=== PATIENT | female | born 2000 | race Caucasian/White ===

== ENCOUNTER 2021-05-26 23:23 | Emergency (ER) | payer OTHER, SELFPAY ==
[2021-05-26 23:29] VITALS: BP 116/77; PULSE 87; RESP 18; TEMP 37.1; O2SAT 97; BMI 28.7
[2021-05-26 23:51] LABS: RBC Urine None Seen (0-5/HPF); WBC Urine None Seen (0-5/HPF)
[2021-05-27] LABS: Appearance Urine UA CLEAR; Bilirubin Urine UA NEGATIVE (NEGATIVE); Color Urine UA YELLOW; Glucose Urine UA NEGATIVE (Negative); Ketones Urine UA NEGATIVE (NEGATIVE); Leukocyte Esterase Urine UA NEGATIVE (NEGATIVE); Nitrite Urine UA NEGATIVE (Negative); Occult Blood Urine UA NEGATIVE (Negative); Protein Urine UA NEGATIVE (Negative); Urobilinogen Urine UA 0.2 E.U./dL (0.2)
[2021-05-27 00:04] LABS: Squamous Epithelial Cell Urine 10-30 /HPF (0-5/HPF)
[2021-05-27 00:05] LABS: Bacteria Urine Many (>30); Culture Indicated Urine Cult Not Indicated
--- NOTE | 2021-05-27 00:23 | DI.RAD.S_ITS ---
PROCEDURE: XR ABDOMEN 1V INDICATIONS: abdominal pain TECHNIQUE: One view of the abdomen acquired. COMPARISON: None. FINDINGS: Surgical changes and devices: An IUD is seen at its expected location. Bowel: Bowel gas pattern is normal. A moderate amount of stool can be seen within the colon. Soft tissues: No suspicious abdominal calcifications. Visualized solid organ contours appear normal in size. Bones: No suspicious bony lesions. Minimal levoconvex scoliotic curvature is seen. IMPRESSION: There is a moderate amount of stool seen within the colon. Please correlate with an underlying history of constipation. IUD incidentally noted. Note: No significant discrepancy from the preliminary report. Dictated by: Bony Levy M.D. on 05/27/2021 at 6:28 Approved by: Bony Levy M.D. on 05/27/2021 at 6:29
--- NOTE | 2021-05-27 00:24 | ED.GENADULT ---
HPI - General Adult General Chief complaint: Urogenital-Female Stated complaint: Possible UTI, back and abd pain Time Seen by Provider: 05/27/21 00:05 Source: patient Mode of arrival: Ambulatory Limitations: no limitations History of Present Illness HPI narrative: Patient is a 20-year-old female approximately 1 week ago she was seen in outside facility with abdominal discomfort and urinary symptoms. She was started on antibiotics. She has been taking them as directed. She states that the urinary symptoms have improved but her bowel symptoms have not. She thought that she was constipated. She took a dose of MiraLax and this did not improve any of the symptoms so she then disimpacted herself and has had a couple bowel movements since then. No vomiting. No fevers. Describes pain all over abdomen. Related Data Allergies Allergy/AdvReac Type Severity Reaction Status Date / Time No Known Drug Allergies Allergy Verified 05/26/21 23:34 Review of Systems Constitutional Constitutional: Denies fever(s) Cardiovascular Cardiovascular: Reports system reviewed and no additional complaints, except as documented Respiratory Respiratory: Reports system reviewed and no additional complaints, except as documented Gastrointestinal Gastrointestinal: Reports as per HPI Genitourinary Comments: No urinary symptoms Musculoskeletal Musculoskeletal: Reports system reviewed and no additional complaints, except as documented Integumentary/Breasts Skin/Breast: Reports system reviewed and no additional complaints, except as documented Neurologic Neurologic: Reports system reviewed and no additional complaints, except as documented Psychiatric Psychiatric: Reports system reviewed and no additional complaints, except as documented Hematologic/Lymphatic On Anticoagulants: No Allergic/Immunologic Allergic/Immunologic: Reports system reviewed and no additional complaints, except as documented Patient History Medical History Urinary tract infection Social History Smoking Status: Never smoker Smoking Status: Never smoker Substance Use Type: does not use Exam Initial Vital Signs Initial Vital Signs: Vital Signs Temperature 98.7 F 05/26/21 23:29 Pulse Rate 87 05/26/21 23:29 Respiratory Rate 18 05/26/21 23:29 Blood Pressure 116/77 05/26/21 23:29 Pulse Oximetry 97 05/26/21 23:29 Const General: cooperative and comfortable HENMT Head: normal to inspection and normocephalic Eyes General: appearance normal, both eyes and all related structures Resp Effort & Inspection: normal respiratory effort Cardio Rate: regular rate GI Inspection: normal to inspection Palpation: soft, No firm, No guarding and tender Skin General: no rashes or lesions noted Neuro General: patient alert, patient awake and moves all extremities Extrem General: normal to inspection and capillary refill normal Psych Appearance: grossly normal and well kempt Course Orders Ordered: ED Orders 05/26/21 23:45 Urinalysis and Microscopic Stat 05/27/21 00:23 XR abdomen 1V Stat 05/27/21 00:24 Test Urine Stat 05/27/21 00:40 Urine Culture Stat Vital Signs Vital signs: Vital Signs - 8 hr 05/26/21 23:29 Temperature 98.7 F Pulse Rate 87 Respiratory Rate 18 Blood Pressure 116/77 Pulse Oximetry 97 Medical Decision Making Lab Data Labs: Lab Results 05/26/21 05/26/21 Range/Units 23:45 23:45 Urine Color Yellow Urine Appearance Clear Urine pH 7.0 (4.5-8.0) Ur Specific [place] 1.010 (1.000-1.035) Urine Protein Negative (Negative) Urine Glucose (UA) Negative (Negative) g/dL Urine Ketones Negative (NEGATIVE) Urine Occult Blood Negative (Negative) Urine Nitrate Negative (Negative) Urine Bilirubin Negative (NEGATIVE) Urine Urobilinogen 0.2 (0.2) E.U./dL Ur Leukocyte Esterase Negative (NEGATIVE) Urine RBC None seen (0-5/HPF) Urine WBC None seen (0-5/HPF) Ur Squamous Epith Cells 10-30 /hpf H (0-5/HPF) Urine Bacteria Many (>30) H (None) Ur Culture Indicated? Cult not indicated Urine Test Negative (Negative) Imaging Data Abdominal x-ray: Attestation: I personally reviewed and interpreted this imaging study as follows: My Impression: No acute pathology, moderate stool in the colon. MDM Narrative Medical decision making narrative: We attempted to contact the facility where she had the urine stable done a couple days ago. There was no culture performed at that time. Her urinalysis today does show bacteria but also quite a bit of epi cells. She is on an antibiotic that would be appropriate for urinary tract infection and she states that the urinary symptoms she was having at the time have also improved. She is here because she has continued abdominal discomfort. A culture up today's urine was ordered. This may be skewed because she has been on antibiotics for the past couple days. She has a soft abdomen. X-ray does show stool burden which I suspect is the cause of her symptoms. We did discuss starting on a good bowel regimen. We will hold on changing any antibiotics that we do not complicate the picture. She was given return precautions and follow-up instructions. She expressed understanding and agreement. Discharge Plan Departure Patient Disposition: Home Clinical Impression: Abdominal pain Instructions: DI for Abdominal Pain-Adult Activity Restrictions/Additional Instructions: I recommend that you continue with the antibiotics as directed until they are gone. I also recommend that you start on a good bowel regiment so that you are having regular soft bowel movements. You can continue to do MiraLax on a daily basis like we discussed. Contact your primary provider for follow-up. Return to the emergency department for any new or worsening symptoms
[2021-05-27 00:34] LABS: Pregnancy Test Urine Negative (Negative)
[2021-05-27 01:49] VITALS: BP 120/80; PULSE 62; RESP 16; O2SAT 99
== END 2021-05-27 01:50 | disposition home or self-care (01) ==
PROVIDERS: Emergency Provider Emergency Medicine
DX: R10.9 Unspecified abdominal pain (principal)
CPT/HCPCS: 74018; 81001; 81025; 87086; 99281; 99283

== ENCOUNTER → 2022-01-09 13:54 | Outpatient (CLI) | payer OTHER, SELFPAY ==
--- NOTE | 2022-01-09 13:55 | DI.US.S_ITS ---
PROCEDURE: US OB <= 14 WEEKS FETUS INDICATIONS: DATING OB US OUTSIDE/PRIOR DATING DATA: Last menstrual period (LMP): November 11, 2021 LMP-based estimated date of delivery (MEHRDAD): August 18, 2022 First dating scan (date and location): January 09, 2022 Estimated date of delivery (MEHRDAD) from first dating scan: August 20, 2022 The calculations are made using the ultrasound MEHRDAD of August 20, 2022 TECHNIQUE: Real-time scanning was performed of the fetus and maternal pelvic organs, with image documentation. Endovaginal scanning was also performed to better visualize the fetus and maternal ovaries. COMPARISON: None. FINDINGS: Embryo: Single living intrauterine identified. pole is identified. [place]-rump length measures 1.7 centimeters corresponding to ultrasound estimated gestational age of 8 weeks 1 day. Heart rate: 178 Maternal organs: Right corpus luteal cyst. IMPRESSION: Single living intrauterine with ultrasound estimated gestational age of 8 weeks 1 day corresponding to ultrasound MEHRDAD of August 20, 2022. Dictated by: Joy Thurston MD, PhD on 01/09/2022 at 16:48 Approved by: Joy Thurston MD, PhD on 01/09/2022 at 16:50
== END ==
PROVIDERS: Referring Provider Obstetrics & Gynecology; Visit Provider Obstetrics & Gynecology
DX: Z34.91 Encounter for supervision of normal pregnancy, unspecified, first trimester (principal); Z3A.08 8 weeks gestation of pregnancy
CPT/HCPCS: 76801

== ENCOUNTER → 2022-01-25 13:08 | Outpatient (CLI) | payer OTHER, SELFPAY ==
[2022-01-25 14:04] LABS: Add Manual Diff / Slide Review NO; Basophils Absolute Auto 0 /uL (0-100); Basophils Percent Auto 0.6 % (0-2); Eosinophils Absolute Auto 300 /uL (0-450); Eosinophils Percent Auto 3.5 % (2-4); Hematocrit 38.2 % (36-46); Lymphocytes Absolute Auto 1700 /uL (1100-4500); Lymphocytes Percent Auto 22.3 % (25-40); Mean Corpuscular Hemoglobin 29.3 PG (26-34); Mean Corpuscular Volume 86.1 fL (80-100); Monocytes Absolute Auto 600 /uL (0-900); Monocytes Percent Auto 7.8 % (3-14); Neutrophils Absolute Auto 5100 /uL (1500-7000); Neutrophils Percent Auto 65.8 % (50-75); Platelet Count 291 X10^3/uL (150-400); Red Blood Cell Count 4.43 X10^6/uL (4.0-5.2); Red Cell Distribution Width 13.3 % (11.6-14.8); White Blood Cell Count 7.8 X10^3/uL (4.5-11.0)
[2022-01-25 14:08] LABS: Appearance Urine UA CLOUDY; Bilirubin Urine UA NEGATIVE (NEGATIVE); Color Urine UA YELLOW; Glucose Urine UA NEGATIVE (Negative); Ketones Urine UA NEGATIVE (NEGATIVE); Leukocyte Esterase Urine UA NEGATIVE (NEGATIVE); Nitrite Urine UA NEGATIVE (Negative); Occult Blood Urine UA NEGATIVE (Negative); Protein Urine UA TRACE (Negative); Urobilinogen Urine UA 0.2 E.U./dL (0.2)
[2022-01-25 14:35] LABS: pH Urine UA 7.5 (4.5-8.0)
[2022-01-25 21:44] LABS: Urine N gonorrhoeae NOT DETECTED
[2022-01-25 21:55] LABS: Urine Chlamydia NOT DETECTED
[2022-01-26 04:08] LABS: RPR Screen Non Reactive (Non Reactive)
[2022-01-26 08:45] LABS: Varicella IgG Antibody 637 index (Immune >165)
[2022-01-28 17:55] LABS: Hepatitis B Surface Antigen NEGATIVE s/c (NEGATIVE)
[2022-01-28 18:10] LABS: HIV 1 & 2 Ab/Ag 4th Gen Combo NEGATIVE (NEGATIVE); Hep C Virus Ab w/Reflex Quant NEGATIVE s/c (NEGATIVE)
[2022-01-28 18:23] LABS: Rubella Antibody IgG 23.2 IU/mL (>15)
== END ==
PROVIDERS: Referring Provider Obstetrics & Gynecology; Visit Provider Obstetrics & Gynecology
DX: Z34.91 Encounter for supervision of normal pregnancy, unspecified, first trimester (principal); Z34.01 Encounter for supervision of normal first pregnancy, first trimester; Z3A.10 10 weeks gestation of pregnancy
CPT/HCPCS: 36415; 80055; 81003; 86787; 86803; 86850; 86900; 86901; 87086; 87389; 87491; 87591

== ENCOUNTER → 2022-02-26 14:52 | Outpatient (CLI) | payer OTHER, SELFPAY ==
[2022-02-28 23:06] LABS: AFP, Serum 29.7 ng/mL (.); Calc Gestational Age Ultrasound (.); Inhibin A, Dimeric 205.34 pg/mL (.); Inhibin A, MoM 1.23 (.); Maternal Ethnicity Caucasian (.); Maternal Weight 145 lbs (.); Number of Fetuses No (.); OSBR Risk 1 IN 10000 (.); Results Report (.); Test Results *Screen Negative* (.); hCG, MoM 0.91 (.); hCG, Serum 47596 mIU/mL (.)
== END ==
PROVIDERS: Referring Provider Obstetrics & Gynecology; Visit Provider Obstetrics & Gynecology
DX: Z34.02 Encounter for supervision of normal first pregnancy, second trimester (principal)
CPT/HCPCS: 36415; 82105; 82677; 84702; 86336

== ENCOUNTER → 2022-04-09 07:40 | Outpatient (CLI) | payer OTHER, SELFPAY ==
--- NOTE | 2022-04-09 07:41 | DI.US.S_ITS ---
PROCEDURE: US OB >= 14 WEEKS FETUS INDICATIONS: 20 week anatomy scan OUTSIDE/PRIOR DATING DATA: Last menstrual period (LMP): November 11, 2021 LMP-based estimated date of delivery (MEHRDAD): August 18, 2022. First dating scan (date and location): January 09, 2022, [facility]. Estimated date of delivery (MEHRDAD) from first dating scan: August 20, 2022. TECHNIQUE: Real-time scanning was performed of the fetus, with image documentation and biometric measurements. COMPARISON: None. FINDINGS: General: A single living intrauterine gestation is present. Presentation: Vertex. Placenta: Placental position is anterior , without previa. Amniotic fluid index: 12.1 cm, normal range is 5-24 cm. heart rate: 157 beats per minute. Maternal cervical canal: 4.4 cm long. Normal lower limit is 2.5 cm. biometrics: Biparietal diameter: 5.2 cm, 21 weeks, 5 days Head circumference: 19 cm, 21 weeks, 2 days Abdominal circumference: 16.6 cm, 21 weeks, 4 days Femur length: 3.5 cm, 21 weeks, 0 days Clinically estimated gestational age: 21 weeks, 0 days Composite gestational age from present scan: 21 weeks, 3 days Estimated weight and percentile: 415 g, 62% Anatomic survey: Neuro: Ventricles are non-dilated at less than 10 mm. Cisterna magna is normal at 3-11 mm. Cerebellum is normal in size and morphology. Nuchal skin fold: Normal at less than 6 mm between 14-21 weeks gestational age. Face: Nose and lips, facial profile are normal. Spine: No evidence for spina bifida. Heart: 4-chambered heart is present, with normal ventricular outflow tracts. Diaphragm: Diaphragm is intact. Stomach: Left-sided stomach is present. Kidneys: No hydronephrosis. Normal is less than 5 mm in 2nd trimester, less than 7 mm in 3rd trimester. Cord: 3-vessel cord has orthotopic insertion. Bladder: Normal in size. Extremities: All 4 extremities identified. IMPRESSION: 1. Single live intrauterine gestation with a composite gestational age of 21 weeks, 3 days. 2. No sonographic anatomic abnormalities. We strive to produce accurate, complete, and clear reports of imaging services. To assist us in improving patient care, this report was composed using standard report templates and voice recognition software. Therefore, it may contain abnormal punctuation, insertions and/or omissions. Occasional wrong-word or sound-alike substitutions may occur. Though we review the report and make efforts to correct it, we do recommend that the report be read carefully in proper context to recognize any text inaccuracies. Dictated by: Niya Oviedo M.D. on 04/09/2022 at 11:18 Approved by: Niya Oviedo M.D. on 04/09/2022 at 11:23
== END ==
PROVIDERS: Referring Provider Obstetrics & Gynecology; Visit Provider Obstetrics & Gynecology
DX: Z34.02 Encounter for supervision of normal first pregnancy, second trimester (principal); Z3A.21 21 weeks gestation of pregnancy
CPT/HCPCS: 76811

== ENCOUNTER → 2022-05-16 15:25 | Outpatient (CLI) | payer OTHER, SELFPAY ==
[2022-05-16 17:32] LABS: Hematocrit 31.9 % (36-46); Hemoglobin 10.9 g/dL (12.0-16.0)
[2022-05-16 17:47] LABS: GTT (PREG) 1 Hour PP 50gm Dose 139 mg/dL (76-139)
== END ==
PROVIDERS: Referring Provider Obstetrics & Gynecology; Visit Provider Obstetrics & Gynecology
DX: Z34.02 Encounter for supervision of normal first pregnancy, second trimester (principal); Z3A.26 26 weeks gestation of pregnancy
CPT/HCPCS: 36415; 82950; 85014; 85018

== ENCOUNTER → 2022-06-25 17:31 | Outpatient (CLI) | payer OTHER, SELFPAY | PROVIDERS: Visit Provider Obstetrics & Gynecology | DX: Z34.03 Encounter for supervision of normal first pregnancy, third trimester (principal); Z3A.32 32 weeks gestation of pregnancy | CPT/HCPCS: 87086 ==

== ENCOUNTER → 2022-07-03 09:00 | Outpatient (CLI) | payer OTHER, SELFPAY ==
[2022-07-03 11:24] LABS: Glucose 1 Hour Gest 182 mg/dL (76-180)
[2022-07-03 11:26] LABS: Glucose Fasting Gestational 66 mg/dL (76-95)
[2022-07-03 12:22] LABS: Glucose Tol Interp,Gestational INTERPRETATION
[2022-07-03 13:39] LABS: Glucose 3 Hour Gest 146 mg/dL (76-140)
[2022-07-03 13:42] LABS: Glucose 2 Hour Gest 121 mg/dL (76-155)
== END ==
PROVIDERS: Referring Provider Obstetrics & Gynecology; Visit Provider Obstetrics & Gynecology
DX: O99.810 Abnormal glucose complicating pregnancy (principal)
CPT/HCPCS: 36415; 82951; 82952

== ENCOUNTER → 2022-07-12 12:52 | Outpatient (CLI) | payer OTHER, SELFPAY ==
--- NOTE | 2022-07-12 13:05 | DIET.CONS ---
Dietary Consultation Note Dx: Gestational Diabetes MEHRDAD: 08/18/22 P: 0 Weeks: 34w +5d Provider: Edi 21y F [address] RD visit c partner for new dx gestational diabetes. Pt passed 1h test, however, only 1pt under cut off so did 3h test and was high on two of the readings, of note, pt FBG that day was 66 L. Pt started metformin 500mg bid three days ago, pt states really difficulty side effects, she is fatigued and having diarrhea after every time she eats. Pts partner has history competitive wrestling so is well versed in cutting/bulking weight and macronutrients. Since diagnosis c GDM pt has cut her carbohydrate consumption significantly. Pt states she was eating whatever I want such as big bowl cereal c milk before bed, but stopped eating even higher sugar fruits over the past few days. Diet Recall: wakes around noon most days- feeling pretty rested considering 35w gestation Brunch: 2 eggs c salmon c water Sn: 1/2 apple or 10 crackers (Ritz) Dinner: salad (spinach, chicken, carrot, cilantro avocado dressing), or hamburger c no bun and baked potato on side Sn: protein bar c glass milk Anthropometrics: Wt: 170# Prepregnancy wt: 153# Wt changes: +17# Recommended wt gain per BMI: 15-25# Recommendations: Pt doing excellent job with moderate weight gain and regular physical activity. 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 Started checking BGs 2d ago FBG 82, 75, 56 2h PP 108, 68, 121, 81, 93 Date Pre Post Pre Post Pre Post Labs: 1h OGTT: 139 WNL; 3h OGTT: FBG 66 L, 1h 182 H, 2h 121 WNL, 3h 146 H Current Medications: Metformin 500mg BID AC/HS - pt with fatigue and diarrhea since initiation 3d ago. Nutrition Rx: Carbohydrates: Meal: 45-g lunch and dinner; 30g breakfast Snack: 15-30g Nutrition Diagnosis: - Altered nutrition related lab value r/t GDM dx aeb recent OGTT Intervention: This participant was very receptive. Provided appropriate educational handouts. Discussed the following topics: - GDM pathophysiology and impact of hyperglycemia on mom and baby - Risk for T2DM for mom and baby in the future - Ways to reduce risk T2DM - Plate Method, meal timing, carb counting, pairing macronutrients and spreading out CHO for better BG management - Blood glucose goals (FBG: <95 and 2 hour <120 mg/dL); importance of checking 4x per day (FBG and pc) - Impact of macronutrients on blood glucose - Recommended servings for carbohydrates at meals and snacks - Brainstormed appropriate meal plan based on her food preferences - Role of physical activity and following provider guidelines for safety Goals: 1. Increase carbs in meals to recommendation of 45g with focus on whole grains and high fiber options. 2. Checking FBG and 2h PP after each meal, alternately, 1h PP. - Follow-up: Pt may benefit from adjustment to medication r/t hypoglycemia, however, pt likely to have higher values once increased intake carbohydrates. JEANN CDCES follow-up in one week on Jul 19 via telehealth. Electronically Signed by: Maribeth Krueger 07/12/22 13:05 Clinical Dietitian [address] [address]
== END ==
PROVIDERS: Referring Provider Obstetrics & Gynecology; Visit Provider Obstetrics & Gynecology
DX: O24.415 Gestational diabetes mellitus in pregnancy, controlled by oral hypoglycemic drugs (principal); Z3A.34 34 weeks gestation of pregnancy; Z71.3 Dietary counseling and surveillance
CPT/HCPCS: 97802

== ENCOUNTER → 2022-07-17 11:58 | Outpatient (CLI) | payer OTHER, SELFPAY ==
[2022-07-18 12:06] LABS: Strep Grp B PCR POS for Grp B Strep
== END ==
PROVIDERS: Visit Provider Obstetrics & Gynecology
DX: Z36.85 Encounter for antenatal screening for Streptococcus B (principal); Z3A.35 35 weeks gestation of pregnancy
CPT/HCPCS: 87653

== ENCOUNTER → 2022-07-19 10:29 | Outpatient (CLI) | payer OTHER, SELFPAY ==
--- NOTE | 2022-07-19 14:33 | DIAB.GDFU ---
Follow-up Gestational Diabetes Assessment Name: Janneth Alan Date: 07/19/22 Time: 1030-1110a Dx: Gestational Diabetes Provider: Edi MEHRDAD: 08/18/22 Weeks: 35-36 Janneth presents for follow-up visit via [employer] platform. Saw JEAN Stahl last week. 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 Continues taking Metformin 500mg BID. Having diarrhea once per day, which she feels depends on how much food she eats. More robust meal equating to less diarrhea. FH DM: maternal grandmother No contact with dad or his family Increased carb intake, keeping food log ?experimenting? with HS snack Diet Recall: Wake: 10a Bed: 12-3a 1030a-12p B: toast with egg or 2 surinamese toast with egg and sf syrup or small bowl bryan charms 1-2p Sn: mini muffin and limeade or fruit cups or jerky or nuts 6-7p D: tacos x 3 5? tortilla, 1c rice and 1c beans or salad and soup gnocchi 11p-12a: fruit cup or vanilla fast food cone Beverages: 1 gallon water, +/- SF limeade or apple juice 8-12oz Stress eating last night due to work. BG was 120 (2 hours) works nights. Has to wait until 1-2am to chat with someone.Family lives in [place]. All siblings are school age. Mom busy with sibs. MIL in bed by 9p. Stress mgmnt; usually dance or do something. Doesn?t want to push herself to be too active. Will color for stress management. Anthropometrics: Wt: 07/17/22 175# Prepregnancy wt: 153# Physical Activity: Very active with job Self-Monitoring Blood Glucose: All BG in goal. Only eats two meals and some snacks per day FBG Post Post Post 07/13 72 100 99 07/14 69 94 90 07/15 68 94 113 07/16 66 111 90 07/17 76 107 95 07/18 73 99 120 07/19 74 Diabetes Medications: Metformin 500mg BID Pertinent Labs: screen 139 mg/dL OGTT: 66, 182H, 121, 146H Intervention: This participant was very receptive. Provided appropriate educational handouts. Discussed the following topics: Recent blood sugar results and trends Review of macronutrient recommendations during and pairing Benefits, resources, and nutrition for recommendations for nutrition and physical activity recommendations for T2DM risk reduction OGTT at 6-12 weeks Checking blood sugars twice per week (goal: fasting <100 mg/dL and 2 hour pc <140 mg/dL) until 6 week check-up HgA1c q 1-3 years. Goals: Increase carbs in meals to recommendation of 45g with focus on whole grains and high fiber options- improved Checking FBG and 2h PP after each meal, alternately, 1h PP- met Pair CHO and Pro for snacks hgA1c and GTT Follow-up: LUZ MARINA AGUILERA follow-up prn Nova Watts RDN, WILLY Certified Diabetes Care and Aircraft Engine Specialist T: [phone] F: [phone] [email or web address] Thank you for this referral
== END ==
PROVIDERS: Referring Provider Obstetrics & Gynecology; Visit Provider Obstetrics & Gynecology
DX: O24.415 Gestational diabetes mellitus in pregnancy, controlled by oral hypoglycemic drugs (principal); Z3A.35 35 weeks gestation of pregnancy; Z71.3 Dietary counseling and surveillance
CPT/HCPCS: G0108

== ENCOUNTER 2022-07-28 15:22 | Outpatient (CLI) | payer OTHER, SELFPAY ==
[2022-07-28] MEDS: LACTATED RINGERS 1,000 ML 1000 ML IV (16:10)
== END 2022-07-28 17:20 | disposition home or self-care (01) ==
LOC: OB 08-07 12:14
PROVIDERS: Referring Provider Obstetrics & Gynecology; Visit Provider Obstetrics & Gynecology
DX: O36.8130 Decreased fetal movements, third trimester, not applicable or unspecified (principal); Z3A.37 37 weeks gestation of pregnancy
CPT/HCPCS: 59025; 96360; G0378; G0379

== ENCOUNTER 2022-07-30 08:30 | Inpatient (IN) | payer OTHER, SELFPAY ==
--- NOTE | 2022-07-30 08:55 | P.HPOB_ITS ---
OB HPI Date/Time Date of admission: 07/30/22 Date Patient Seen: 07/30/22 History of Present Condition Chief complaint: R/O LABOR : 1 Para: 0 Estimated Date of Delivery: 08/18/22 Estimated Gestational Age (weeks): 37+2 Narrative: Janneth Riley is a 21 year old who presents with SROM, clear fluid @ 0730 this AM. She's not having any contractions. course has been complicated by gestational diabetes treated solely with diet and oral metformin 500 mg p.o. b.i.d.. course has otherwise been uncomplicated. GBS is positive. Indications Other reason(s) for admission: SROM History of Present care: good care Dating criteria: LMP confirmed by 1st trimester US Ultrasounds: normal 1st trimester US and normal mid trimester US Obstetrical complications: gestational diabetes Preadmission Labs Blood type: A (+) positive -: Antibody screen: negative, GBS status: positive, HBsAG: negative, HIV: negative and RPR/VDLR: negative -: Chlamydia screen: not detected and Gonorrhea screen: not detected -: Rubella: immune and Varicella: immune HCAB: negative PAP: Normal Quad screen: Normal 1 hr GTT: 139 3 hr GTT: 1 hr (182), 2 hr (121) and 3 hr (146) Fasting blood glucose: 66 Prior (ies) History: N/A Evaluation Evaluation Baseline heart rate: 140 Variability: Moderate (11-25) monitor accelerations: Present Monitor Decelerations: Absent Contraction Frequency (minutes): 3 Uterine Contraction Intensity: Moderate Category of Tracing: Reactive Status: Category l Dilation (cm): 2 Effacement (%): 75 Dilation: 1-2 cm Effacement: 60-70% station: -1 Position of cervix: mid Consistency: soft Mckenna score: 8 Non-invasive Membranes Rupture Test: positive PFSH Medical History Chronic eczema Migraines Urinary tract infection Surgical History No history of previous surgery Social History marital status: number of children: 0 household members: spouse lives independently: Yes housing: house pets and animals: Yes (Dogs, aware of toxoplasmosis ) education level: high school occupational status: unemployed current occupational exposures/hazards: No special jw needs: No seatbelt use: always water heater temp set < 120 deg: Yes working smoke detector in home: Yes fire extinguisher in home: Yes carbon monox detector in home: Yes firearms in home: No do you feel safe at home: Yes Smoking Status: Never smoker second hand exposure: No alcohol intake: former substance use type: does not use during the past year weight has: remained stable well-balanced diet: daily or most days daily servings fruits/ve-4 caffeine: Yes (200mg per day) Type(s) of exercise: walking, regular exercise and additional frequency: 5-6 times per week Meds Home Medications and Allergies Home Medications Medication Instructions Recorded Confirmed Type prenat.vits,amanda,jbf-[id number]-[id number] 1 tab PO DAILY 01/16/22 07/30/22 History hydrocortisone 2.5 % topical cream 1 applic topical BID PRN Eczema 06/25/22 07/30/22 Rx #60 grams blood-glucose meter (Blood Glucose #1 ea 07/09/22 07/30/22 Rx Monitoring kit) lancets 30 gauge and blood glucose #200 ea 07/09/22 07/30/22 Rx strips combo pack metformin 500 mg tablet 500 mg PO BIDWMEAL #60 tabs 07/09/22 07/30/22 Rx blood sugar diagnostic (Blood #120 ea 07/11/22 07/30/22 Rx Glucose Test strips) Allergies Allergy/AdvReac Type Severity Reaction Status Date / Time No Known Drug Allergies Allergy Verified 07/25/22 11:57 OB Exam [facility] Head: normal to inspection, normocephalic and atraumatic Eyes General: appearance normal, both eyes and all related structures Resp Effort & Inspection: normal respiratory effort and able to speak in complete s entences Auscultation: clear to auscultation bilaterally Cardio Rate: regular rate Rhythm: regular rhythm Heart Sounds: S1 normal, S2 normal and no murmurs Extremities Lower extremity: Yes normal to inspection GI Inspection: normal to inspection Palpation: Yes soft and Yes no hepatosplenomegaly Uterus Location (Fundal Height): 37 Presentation: vertex Estimated Weight (lbs): 8 Objective Labs Result Diagrams: 07/30/22 09:05 Assessment and Plan Assessment and Plan Assessment and Plan narrative: ASSESSMENT 1. Intrauterine gestation, Hernandez, vertex, 37+ 2 weeks gestational age 2. Gestational diabetes, type A2 (metformin, diet) 3. GBS positive status PLAN 1. Admit 2. GBS prophylaxis 3. Initiate Pitocin augmentation if spontaneous labor does not begin within 6 hours status post SROM
[2022-07-30] MEDS: PENICILLIN G POTASSIUM 5,000,000 UNIT in DEXTROSE 5% IN WATER 250 ML 250 UNIT IV (09:18)
[2022-07-30] MEDS: LACTATED RINGERS 1,000 ML 100 ML IV ×2 (09:18→18:24)
[2022-07-30 09:24] LABS: Add Manual Diff / Slide Review NO; Basophils Absolute Auto 100 /uL (0-100); Basophils Percent Auto 0.6 % (0-2); Eosinophils Absolute Auto 400 /uL (0-450); Eosinophils Percent Auto 3.4 % (2-4); Hemoglobin 11.7 g/dL (12.0-16.0); Lymphocytes Absolute Auto 2000 /uL (1100-4500); Lymphocytes Percent Auto 18.5 % (25-40); Mean Corpuscular HGB Conc 33.4 % (30-36); Mean Corpuscular Hemoglobin 28.6 PG (26-34); Mean Corpuscular Volume 85.6 fL (80-100); Monocytes Absolute Auto 900 /uL (0-900); Monocytes Percent Auto 8.5 % (3-14); Neutrophils Absolute Auto 7500 /uL (1500-7000); Platelet Count 260 X10^3/uL (150-400); Red Blood Cell Count 4.09 X10^6/uL (4.0-5.2); Red Cell Distribution Width 14.8 % (11.6-14.8); White Blood Cell Count 10.8 X10^3/uL (4.5-11.0)
[2022-07-30 10:28] LABS: COVID19 -Nasal RAPID Negative (Negative)
[2022-07-30] MEDS: PENICILLIN G POTASSIUM 3,000,000 UNIT/50 ML FROZ.PIGGY 100 UNIT IV ×3 (13:06→21:20)
[2022-07-30] MEDS: OXYTOCIN PREMIX 30 UNIT/500 ML PLAST..BAG IV (13:39)
[2022-07-30] MEDS: METFORMIN HCL 500 MG TABLET PO (17:27)
--- NOTE | 2022-07-30 17:38 | PM.OBPNLAB ---
Date/Time Date Patient Seen: 07/30/22 Time Patient Seen: 17:38 Pain Control Pain control: tolerating well Pelvic Exam Dilation (cm): 2 Effacement (%): 75 station: -1 Amniotic membrane status: Ruptured Contractions Contractions on admission: irregular Monitor mode: External Pitocin rate (mU/min): 9 Contraction frequency (min): 3 Contraction duration (min): 1 Contraction pattern: Regular Contraction phase: Resting Contraction intensity: Moderate Status status: Category l Heart Rate Baseline: 140 Monitor Accelerations: Present Monitor Decelerations: Absent Monitor Variability: Moderate Comments: Pitocin augmentation initiated due to painless irregular contractions 6 hrs. s/p SROM Assessment and Plan Assessment: other (Augmentation ongoing) Plan: continuous present management
[2022-07-30] MEDS: fentaNYL 100 MCG/2 ML INJ 50 MCG IV (21:50)
[2022-07-30] MEDS: ONDANSETRON 4 MG/2 ML INJ 8 MG IV (21:56)
[2022-07-31] MEDS: PENICILLIN G POTASSIUM 3,000,000 UNIT/50 ML FROZ.PIGGY 100 UNIT IV ×4 (01:24→14:39)
[2022-07-31] MEDS: LACTATED RINGERS 1,000 ML 100 ML IV (06:05)
[2022-07-31] MEDS: fentaNYL 100 MCG/2 ML INJ 50 MCG IV (06:36)
--- NOTE | 2022-07-31 06:44 | PM.OBPNLAB ---
Date/Time Date Patient Seen: 07/31/22 Time Patient Seen: 06:34 Pain Control Pain control: narcotic analgesia Comments: Patient has used Nitrous oxide but not well tolerated and now has received her second dose of IV fentanyl. Overnight she asked that the Pitocin be discontinued due to painful contractions therefore little progress has been made Pelvic Exam Dilation (cm): 6 Effacement (%): 90 station: 0 Amniotic membrane status: Ruptured (Some forewaters persist) Contractions Contractions on admission: irregular Monitor mode: External Pitocin rate (mU/min): 0 Contraction frequency (min): 5 Contraction duration (min): 1 Contraction pattern: Irregular Contraction phase: Resting Contraction intensity: Moderate Status status: Category l Heart Rate Baseline: 145 Monitor Accelerations: Present Monitor Decelerations: Episodic (Sporadic mild variables) and Variable Monitor Variability: Moderate Assessment and Plan Assessment: active labor Plan: other (See below.) Comments: Will restart Pitocin augmentation after Fentanyl provides some relief for her. If poorly tolerated, patient will consider JOSE placement. Patient encouraged to use all available pain relief options so adequate contraction activity can be achieved to advance labor as we a re now nearly 24 hrs. s/p SROM and risks of infection increase significantly with further delay in achieving effective labor.
[2022-07-31] MEDS: LACTATED RINGERS 1,000 ML 999 ML IV ×2 (07:22→08:04)
[2022-07-31] MEDS: FENT 2MCG/ML BUPIV 0.125% EPI 200 MCG/100 ML PLAST..BAG 10 MCG EPIDURAL ×2 (07:30→12:34)
[2022-07-31] MEDS: METFORMIN HCL 500 MG TABLET PO (08:04)
[2022-07-31] MEDS: ONDANSETRON 4 MG/2 ML INJ 8 MG IV (12:37)
--- NOTE | 2022-07-31 13:28 | PM.OBPNLAB ---
Date/Time Date Patient Seen: 07/31/22 Time Patient Seen: 13:28 Pain Control Pain control: tolerating well and epidural Pelvic Exam Dilation (cm): 9 Effacement (%): 100 station: 0 Amniotic membrane status: Ruptured (Some forewaters persist) Comments: Forewaters rupture w/ amni-hook. Contractions Contractions on admission: irregular Monitor mode: External Contraction frequency (min): 3 Contraction duration (min): 1 Contraction pattern: Irregular Contraction phase: Resting Contraction intensity: Moderate Status status: Category l Monitor Accelerations: Present Monitor Decelerations: Absent Monitor Variability: Moderate Assessment and Plan Assessment: induction ongoing Plan: continuous present management
--- NOTE | 2022-07-31 17:59 | PM.OBPRVD ---
Events: Gestational Diabetes Labor & Delivery Delivery date: 07/31/22 Intrapartal Events: None Cervical ripening method: none Induction method: none Delivery augmentation: pitocin Delivery monitor: external FHT Route of delivery: Episiotomy description: None L&D Laceration Description: Periurethral - 2nd Degree and Perineal - 1st Degree Delivery repair: chromic Estimated blood loss (mL): 250 Anesthesia Type: Epidural and Local (1% lidocaine w/o epinephrine) Complications: None Narrative: Once the patient entered the 2nd stage of labor, she pushed vigorously with epidural in place and the infant descended slowly to the perineum. The vertex delivered spontaneously over an intact perineum followed by easy delivery of the shoulders and a slight degree of body dystocia. Once the was delivered, skin to skin contact was initiated immediately and delayed cord clamping performed. The umbilical cord was then doubly clamped and cut by the father and cord blood sample was obtained for routine studies. The placenta was then delivered spontaneously with very gentle traction on the cord, inspected and found to be intact with a central three-vessel cord insertion. Intravenous Pitocin was initiated. Inspection of the vaginal introitus demonstrated a second-degree supra urethral laceration extending from the right side of the clitoral body across the midline to the left periurethral area. A Walker catheter was inserted so as to provide clear identification of the urethral meatus and closure of the defect was accomplished with 3-0 chromic in a running interlocking stitch. Skin to skin apposition was excellent and no bleeding or hematoma was encountered. The first-degree perineal laceration was then closed with 3-0 chromic in a running interlocking stitch and hemostasis of both laceration sites was excellent. At that point the delivery process was completed and sponge, instrument, and needle counts were all correct. Both mother and are doing well at the completion of the process. Baby 1: Infant gender: Female Presentation: vertex Position: Left Occiput Anterior Placenta delivery description: Spontaneous Cord Vessel Description: 3 Vessels score (1 min): 8 score (5 min): 9 weight: 7 lb 14.845 oz Plan for aftercare: Routine care and Other (Wlaker catheter indwelling overnight.)
[2022-07-31] MEDS: IBUPROFEN 600 MG TABLET PO (20:24)
[2022-07-31] MEDS: ACETAMINOPHEN 325 MG TABLET 650 MG PO (20:25)
[2022-07-31] MEDS: DERMOPLAST SPRAY 20% 60 ML 1 SPRAY TOP (22:49)
[2022-08-01] MEDS: ACETAMINOPHEN 325 MG TABLET 650 MG PO ×2 (03:17→13:22)
[2022-08-01] MEDS: IBUPROFEN 600 MG TABLET PO ×2 (03:17→13:22)
[2022-08-01 07:11] LABS: Hematocrit 28.8 % (36-46); Hemoglobin 9.8 g/dL (12.0-16.0)
--- NOTE | 2022-08-01 07:53 | PM.OBPN.1 ---
Subjective - OB Subjective Patient comments: no complaints and pain well controlled baby status: doing well feeding status: exclusively breast feeding Date Patient Seen: 08/01/22 Time Patient Seen: 07:54 Exam Const General: cooperative and comfortable Nutritional Appearance: average body habitus Orientation: alert and oriented x3 HENMT Head: normal to inspection, atraumatic and abrasion Ears: hearing grossly normal bilaterally Face and sinus: face symmetric Eyes General: appearance normal, both eyes and all related structures Conjunctivae: conjunctivae normal Sclera: sclerae normal EOM: EOM intact bilaterally Neck Neck: normal visual inspection Resp Effort & Inspection: normal respiratory effort and able to speak in complete sentences GI Inspection: normal to inspection Palpation: soft and no hepatosplenomegaly External Female Exam: externally tender, external swelling (Mild. Repairs intact.) and other (No significant bleeding noted) Extrem General: no calf tenderness Psych Appearance: grossly normal Mental Status: mental status grossly normal Speech and Movement: speech and movement normal Mood: congruent mood Affect: normal affect Attitude: cooperative Thought Process: normal Thought Content: normal Judgment: judgment good Objective Labs Result Diagrams: 08/01/22 06:50 Labs: Laboratory Results - last 24 hr 08/01/22 06:50 Hgb 9.8 L Hct 28.8 L Assessment & Plan Plan day: 1 plan OB: routine care Comments: Will remove winter catheter and closely observe for voiding issues following removal. Time Spent With Patient Time: Total time spent is greater than 50% in coordination of care (as documented) at patient's floor/unit and/or counseling patient: Time with patient: 15-24 minutes
[2022-08-01] MEDS: OXYCODONE IR 5 MG TABLET PO (09:05)
[2022-08-01] MEDS: DOCUSATE 100 MG CAPSULE 200 MG PO (09:06)
--- NOTE | 2022-08-01 17:10 | P.DS_ITS ---
Discharge Providers Provider Date of admission: 07/30/22 08:30 Discharge Date: 08/01/22 Primary care physician: Fifi FERNANDO Provider Consults: 07/30/22 08:59 Consult to Anesthesiology Urgent Comment: Consulting Provider: Jorge Daley Reason for consultation: JOSE placement in labor Has provider been notified: No 08/01/22 17:55 Consult to [facility] Routine Comment: Discharge provider: Jorge Daley MD Summary Hospital Course Date Patient Seen: 08/01/22 Time Patient Seen: 17:11 Diagnoses: Intrauterine gestation, rodrigez, 37+3 weeks EGA, delivered Gestational diabetes Hospital Course: Janneth was admitted on the morning of 07/30/2021 with spontaneous rupture membranes occurring at 7:30 a.m. that morning. Contractions remained irregular and early on the afternoon of 07/30, Pitocin augmentation was initiated. The patient progressed slowly and a continuous lumbar epidural was placed for effective pain relief in labor. She delivered spontaneously on the evening of 07/31/2022 female infant with Apgars of 8/9 and weight of 7 lb 14.8 oz. at the time of delivery she sustained a laceration extending from the right clitoral frenulum downward over the vestibule to the left periurethral which required repair and a Walker catheter was placed to assure bladder drainage overnight following her delivery. The catheter was removed in the morning and she was able to void easily. Her bowel and bladder function returned normally, she is able to ambulate independently, is tolerating regular diet, and her pain level is well controlled with oral pain medications. She will be discharged at this time to home in an afebrile normotensive condition after counseling regarding precautionary symptoms, limitations of activity, medications, and plans for follow-up. Medications at discharge will include Colace 200 mg p.o. b.i.d. as needed constipation, ibuprofen 600 mg p.o. q.6 hours as needed pain, and Macrobid 100 mg p.o. b.i.d. x7 days for urinary prophylaxis following catheterization. No decision has been made regarding contraceptive use/method and follow-up will be in 6 weeks or as needed. Urethral Peripartum Data Infant Delivery Method: Natural Vaginal Laceration Description: Periurethral - 2nd Degree and Perineal - 1st Degree Episiotomy description: None complications: none [place] 1: Gender: Female Disposition of : home Discharge Diagnosis (1) Obstetric vaginal laceration, delivered, current hospitalization: Status: Acute Status at Discharge Cognitive/behavioral status at discharge: oriented Functional status at discharge: independent ambulation Overall status at discharge: patient is progressing back to baseline Time Spent with Patient Time attestation: Total time spent providing and/or coordinating discharge services: Time spent: Less than 30 minutes Objective Labs Result Diagrams: 08/01/22 06:50 Labs: Laboratory Results - last 24 hr 08/01/22 06:50 Hgb 9.8 L Hct 28.8 L Exam Const General: cooperative and comfortable Nutritional Appearance: average body habitus Orientation: alert and oriented x3 HENMT Head: normal to inspection, atraumatic and abrasion Ears: hearing grossly normal bilaterally Face and sinus: face symmetric Eyes General: appearance normal, both eyes and all related structures Conjunctivae: conjunctivae normal Sclera: sclerae normal EOM: EOM intact bilaterally Neck Neck: normal visual inspection Resp Effort & Inspection: normal respiratory effort and able to speak in complete sentences Auscultation: clear to auscultation bilaterally Cardio Rate: regular rate Rhythm: regular rhythm Heart Sounds: S1 normal, S2 normal and no murmurs GI Inspection: normal to inspection Palpation: soft, no hepatosplenomegaly and mass (Fundus U-4, NT) External Female Exam: laceration (Healing nicely with minimal bruising, minimal swelling) and other (No significant bleeding noted) Extrem General: no calf tenderness Psych Appearance: grossly normal Mental Status: mental status grossly normal Speech and Movement: speech and movement normal Mood: congruent mood Affect: normal affect Attitude: cooperative Thought Process: normal Thought Content: normal Judgment: judgment good Discharge Plan Discharge Plan Patient Disposition: Home Provider Discharge Comment: Please review the written instructions you received when you were discharged from the hospital. Your visit will be scheduled for 6 weeks following her delivery and I look forward to seeing you then. If however in the meanwhile, you have any issues, concerns, or questions, please contact me either through the office phone at [phone] or via the patient portal. Discharge orders & Medications Prescriptions: New docusate sodium 100 mg Capsule 200 mg PO BID 30 Days Qty: 120 2RF ibuprofen 600 mg Tablet 600 mg PO Q6HR PRN (Reason: Pain, Mild (1-3)) Qty: 60 2RF nitrofurantoin monohyd/m-cryst [Macrobid] 100 mg capsule 100 mg PO Q12H 7 Days Qty: 14 0RF Rx Instructions: must administer with a meal/food Continued prenat.vits,amanda,[id number]-unov-[id number] Tablet 1 tab PO DAILY hydrocortisone 2.5 % cream 1 applic topical BID PRN (Reason: Eczema) Qty: 60 4RF Discontinued metformin 500 mg tablet 500 mg PO BIDWMEAL Qty: 60 5RF No Action (DME) lancets-blood glucose strips 30 gauge combo pack See Rx Instructions .ROUTE .MEDSUPPLY Qty: 200 2RF Rx Instructions: As directed 4 times daily (DME) blood-glucose meter [Blood Glucose Monitoring] Kit See Rx Instructions .Route Qty: 1 0RF Rx Instructions: Check blood sugar fasting and 2 hours after each meal (DME) Blood Glucose Test Strip See Rx Instructions .ROUTE .MEDSUPPLY Qty: 120 3RF Rx Instructions: Testing blood sugars fasting and 2 hr PP Follow up/Referrals: ProviderFifi [Primary Care Provider] - Jorge Daley MD [Physician] - 6 Weeks (Make an appointment for [address] Daley) Discharge Health Status Multidrug resistant organism: No MDRO Diet/Activity/Treatments Diet: Diet as Tolerated Diet comment: As tolerated Other treatments: [id number] Tylenol may be used for additional pain relief Skin/Wound/Dressing Care Report to your healthcare provider any signs of infection, such as:: chills, fever, increased pain, unusual drainage and unusual redness Dressing: N/A Visit Report/Discharge Packet Instructions: DI for Labor and Delivery, Vaginal , DI for and Nipple Soreness Stand Alone Forms: Discharge: Care Discharge Data Primary Care Provider: Fifi Steinberg
== END 2022-08-01 18:27 | disposition home or self-care (01) | DRG 807 ==
PROVIDERS: Admitting Provider Obstetrics & Gynecology; Referring Provider Obstetrics & Gynecology; Visit Provider Obstetrics & Gynecology
DX: O42.12 Full-term premature rupture of membranes, onset of labor more than 24 hours following rupture (principal); Z37.0 Single live birth; O24.425 Gestational diabetes mellitus in childbirth, controlled by oral hypoglycemic drugs; Z3A.37 37 weeks gestation of pregnancy; O99.824 Streptococcus B carrier state complicating childbirth; O71.82 Other specified trauma to perineum and vulva; O70.0 First degree perineal laceration during delivery; O76 Abnormality in fetal heart rate and rhythm complicating labor and delivery; Z20.822 Contact with and (suspected) exposure to COVID-19
CPT/HCPCS: 01967; 36415; 59050; 59400; 84112; 85014; 85018; 85025; 86850; 86900; 86901; 87635; C9803; G0379; J2405; J2540; J2590; J3010